=== PATIENT | female | born 1995 | race Caucasian/White ===

== ENCOUNTER → 2018-09-22 | Emergency (ER) | payer OTHER ==
[~2018-09-22] VITALS: Ht 154.9 cm; Wt 49.4 kg
[~2018-09-22] MED LIST: CITA20TA19 PO; HYDROCODONE/APAP 5-325MG TABLET ONE; HYDROCODONE/APAP 5-325MG TABLET PO ONE; IBUPROFEN 400 MG TABLET ONE; IBUPROFEN 400 MG TABLET PO ONE; LAMO150T2 PO; ONDANSETRON ODT 4 MG TAB.RAPDIS ONE
--- NOTE | 2018-09-22 11:35 | NUR ---
Dr. Vega at the bedside for MSE.
--- NOTE | 2018-09-22 12:47 | NUR ---
Patient discharged to home in stable conditon. Written and verbal after care instructions given. Patient verbalizes understanding of instructions. Crutches and ankle splint provided.
== END | disposition home or self-care (01) ==
LOC: ER 11:07
DX: S93.402A Sprain of unspecified ligament of left ankle, initial encounter (principal); Z79.899 Other long term (current) drug therapy; W01.0XXA Fall on same level from slipping, tripping and stumbling without subsequent striking against object, initial encounter; Y93.89 Activity, other specified; Y92.89 Other specified places as the place of occurrence of the external cause; Y99.8 Other external cause status
CPT/HCPCS: 73610; A4663; Q0162